=== PATIENT | male | born 1965 | race Caucasian/White ===

== ENCOUNTER 2019-05-26 08:11 | Day surgery (SDC) | payer OTHER ==
[~2019-05-26 08:11] MED LIST: Lactated Ringers 1,000 ML IV SCH; Lidocaine 1%/Sod Bicarbonate in NS 8.4% 1 ML Syringe IDERM PRN; Sodium Chloride 0.9% 10 ML Syringe FLUSH PRN
--- NOTE | 2019-05-26 09:04 | PCM.PREANE ---
Preanesthetic Assessment - Anesthesia/Transfusion/Family Hx Anesthesia History: No Prior Anesthesia Transfusion History: No Prior Transfusion(s) - Review of Systems General: No Symptoms Pulmonary: No Symptoms Cardiovascular: No Symptoms Gastrointestinal: No Symptoms Neurological: No Symptoms Other: Reports: None - Physical Assessment NPO Status Date: 05/26/19 NPO Status Time: 04:00 Vital Signs: Last Vital Signs Temp 98.2 F 05/26/19 08:15 Pulse 99 05/26/19 08:15 Resp 16 05/26/19 08:15 BP 152/91 H 05/26/19 08:15 Pulse Ox 98 05/26/19 08:15 Height: 1.83 m Weight: 93.44 kg ASA Class: 2 Mental Status: Alert & Oriented x3 Airway Class: Mallampati = 3 Dentition: Reports: Normal Dentition Thyro-Mental Finger Breadths: 3 Mouth Opening Finger Breadths: 3 ROM/Head Extension: Full Lungs: Clear to Auscultation, Normal Respiratory Effort Cardiovascular: Regular Rate, Regular Rhythm - Allergies Allergies/Adverse Reactions: Allergies Allergy/AdvReac Type Severity Reaction Status Date / Time No Known Allergies Allergy Verified 05/25/19 13:14 - Acknowledgements Anesthesia Type Planned: MAC Pt an Appropriate Candidate for the Planned Anesthesia: Yes Alternatives and Risks of Anesthesia Discussed w Pt/Guardian: Yes Pt/Guardian Understands and Agrees with Anesthesia Plan: Yes PreAnesthesia Questionnaire - Past Health History Medical/Surgical History: Denies Medical/Surgical History Cardiovascular History: Reports: Hypertension - SUBSTANCE USE Smoking Status *Q: Never Smoker Recreational Drug Use History: No - HOME MEDS Home Medications: Home Meds lisinopriL [Lisinopril] 20 mg PO DAILY 05/25/19 [History] - CURRENT (IN HOUSE) MEDS Current Meds: Current Medications Lactated Ringer's (Ringers, Lactated) 1,000 mls @ 125 mls/hr IV ASDIRECTED [place]FF[place] Stop: 05/26/19 23:00 Last Admin: 05/26/19 08:35 Dose: 125 mls/hr Lidocaine/Sodium Bicarbonate (Buffered Lidocaine 1% In Ns 8.4%) 0.25 ml IDERM ONETIME PRN PRN Reason: Prior to IV Start Stop: 05/26/19 18:00 Last Admin: 05/26/19 08:34 Dose: 0.25 ml Sodium Chloride (Saline Flush) 10 ml FLUSH ASDIRECTED PRN PRN Reason: Keep Vein Open Stop: 05/26/19 18:00
[2019-05-26] MEDS ORDERED: Midazolam 1 MG/ML 2 ML SDV ONE (09:10)
[2019-05-26] MEDS ORDERED: Propofol 200 MG/20 ML SDV ONE ×2 (09:16→09:58)
[2019-05-26] MEDS ORDERED: fentaNYL 100 MCG/2 ML SDV ONE (09:16)
[2019-05-26] MEDS ORDERED: Lidocaine 1% 0 ML ONE (09:16)
[2019-05-26] MEDS ORDERED: Lidocaine 1% 4 ML ONE (09:26)
[2019-05-26] MEDS ORDERED: Lactated Ringers 1,000 ML ONE (10:02)
[2019-05-26] MEDS ORDERED: Phenylephrine/Normal Saline 100 MCG/ML 10 ML Syringe ONE (10:12)
--- NOTE | 2019-05-26 10:13 | PCM.PRNOTE ---
- Free Text/Narrative Note: Date: 05/26/2019 Procedure: screening colonoscopy Endoscopist: Angel Turner MD Findings: Ileocecal valve visualized. Prep was excellent. Single subcentimeter polyp in cecum biopsied and fulgurated. External hemorrhoids. Detailed Report: The patient was taken to the endoscopy suite and placed in left lateral decubitus position. Time out was performed and monitored anesthesia care was initiated. Visual inspection of the anus revealed moderate external hemorrhoidal disease. Digital rectal exam was unremarkable. The lubricated colonoscope was then inserted and advanced all the way into the terminal ileum. The prep was noted to be excellent. On slow withdrawal of the scope, mucosal surfaces were carefully inspected. A single subcentimeter sessile polyp in the cecum was biopsied and the base fulgurated. No additional polyps were identified. No diverticular disease noted. No internal hemorrhoidal disease. The patient tolerated the procedure well. Angel Turner MD General Surgery
--- NOTE | 2019-05-26 10:33 | PCM48HPAN ---
Post Anesthesia Note - EVALUATION WITHIN 48HRS OF ANESTHETIC Vital Signs in Normal Range: Yes Patient Participated in Evaluation: Yes Respiratory Function Stable: Yes Airway Patent: Yes Cardiovascular Function Stable: Yes Hydration Status Stable: Yes Pain Control Satisfactory: Yes Nausea and Vomiting Control Satisfactory: Yes Mental Status Recovered: Yes Vital Signs: Last Vital Signs Temp 97.2 F 05/26/19 10:16 Pulse 72 05/26/19 10:16 Resp 16 05/26/19 10:16 BP 81/48 L 05/26/19 10:16 Pulse Ox 94 L 05/26/19 10:16
== END 2019-05-26 10:55 | disposition home or self-care (01) ==
LOC: JD.SDS 08:11
PROVIDERS: ATTEND Surgery
DX: Z12.11 Encounter for screening for malignant neoplasm of colon (principal); D12.0 Benign neoplasm of cecum; K64.4 Residual hemorrhoidal skin tags; I10 Essential (primary) hypertension; Z79.899 Other long term (current) drug therapy
CPT/HCPCS: 45380; J2001; J2250; J2370; J2704; J3010; J7120; 00812

== ENCOUNTER 2024-08-16 07:47 | Day surgery (SDC) | payer OTHER ==
[~2024-08-16 07:47] MED LIST changes: -Lactated Ringers 1,000 ML IV SCH; -Lidocaine 1%/Sod Bicarbonate in NS 8.4% 1 ML Syringe IDERM PRN; +Sodium Chloride 0.9% 10 ML Syringe FLUSH SCH
[2024-08-16] MEDS: Lactated Ringers 1,000 ML IV SCH (08:05)
[2024-08-16] MEDS ORDERED: Lidocaine 1% 4 ML ONE (08:36)
[2024-08-16] MEDS ORDERED: Midazolam 1 MG/ML 2 ML SDV ONE (08:36)
[2024-08-16] MEDS ORDERED: Propofol 200 MG/20 ML SDV ONE (08:36)
[2024-08-16] MEDS ORDERED: Phenylephrine 1% 10 MG/ML SDV ONE (08:47)
== END 2024-08-16 09:55 | disposition home or self-care (01) ==
LOC: JD.SDS 07:47
PROVIDERS: ATTEND Surgery
DX: Z12.11 Encounter for screening for malignant neoplasm of colon (principal); D12.4 Benign neoplasm of descending colon; K57.30 Diverticulosis of large intestine without perforation or abscess without bleeding; K64.4 Residual hemorrhoidal skin tags; K52.9 Noninfective gastroenteritis and colitis, unspecified; I10 Essential (primary) hypertension; E78.00 Pure hypercholesterolemia, unspecified; F41.9 Anxiety disorder, unspecified; Z79.899 Other long term (current) drug therapy; Z86.0100 Personal history of colon polyps, unspecified
CPT/HCPCS: 45380; 45385; J2003; J2250; J2371; J2704; J7120; 00811